=== PATIENT | male | born 1990 | race African-American/Black ===

== ENCOUNTER 2019-01-19 11:24 | Emergency (ER) | payer OTHER ==
[~2019-01-19] VITALS: Ht 193 cm; Wt 124.7 kg
[2019-01-19 11:40] VITALS: BP 157/87
--- NOTE | 2019-01-19 11:55 | PHYS DOC ---
Past Medical History Past Medical History: No Pertinent History Past Surgical History: No Surgical History Alcohol Use: None Drug Use: None Adult General Chief Complaint Chief Complaint: LACERATION/AVULSION HPI HPI Patient is a 28 year old male presents to the ED complaining of left thumb injury �15 minutes ago. 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 Describes the pain as sharp. Rates the pain as 5 out of 10. Denies decreased range of motion, nail bed injury, fever, active bleeding, weakness. Review of Systems Review of Systems Constitutional: Denies fever or chills [] Eyes: Denies change in visual acuity, redness, or eye pain [] HENT: Denies nasal congestion or sore throat [] Respiratory: Denies cough or shortness of breath [] Cardiovascular: No additional information not addressed in HPI [] GI: Denies abdominal pain, nausea, vomiting, bloody stools or diarrhea [] : Denies dysuria or hematuria [] Musculoskeletal: Denies back pain or joint pain [] Integument: Denies rash or skin lesions [] Neurologic: Denies headache, focal weakness or sensory changes [] All other systems were reviewed and found to be within normal limits, except as documented in this note. Allergies Allergies Allergies Coded Allergies Type Severity Reaction Last Updated Verified No Known Drug Allergies 01/19/19 No Physical Exam Physical Exam Constitutional: Well developed, well nourished, no acute distress, non-toxic appearance. [] HENT: Normocephalic, atraumatic Skin: Warm, dry, no erythema, no rash. [] Back: No tenderness, no CVA tenderness. [] Extremities: 1 cm avlusion to left distal thumb. no active bleeding. no bony tenderness, no cyanosis, no clubbing, ROM intact, no edema. [] Neurologic: Alert and oriented X 3, normal motor function, normal sensory function, no focal deficits noted. [] Psychologic: Affect normal, judgement normal, mood normal. [] Current Patient Data Vital Signs Vital Signs Date Time Temp Pulse Resp B/P (MAP) Pulse Ox O2 Delivery O2 Flow Rate FiO2 01/19/19 11:40 97.9 75 16 157/87 (110) 99 Room Air 97.9 EKG EKG [] Radiology/Procedures Radiology/Procedures [] Course & Med Decision Making Course & Med Decision Making Pertinent Labs and Imaging studies reviewed. (See chart for details) []Avulsion injury. No laceration that is repairable. Wound cleaned and dressed. Tetanus up-to-date. Discussed symptomatic treatment and care outpatient. Provided contact information/education for follow-up. Discussed reasons to return to the ED. Patient understands and agrees with plan. Dragon Disclaimer Dragon Disclaimer This electronic medical record was generated, in whole or in part, using a voice recognition dictation system. Departure Departure Impression: Primary Impression: Fingertip avulsion Disposition: HOME, SELF-CARE Condition: IMPROVED Patient Instructions: Fingertip Laceration GREG HSU Jan 19, 2019 11:55
== END 2019-01-19 12:07 | disposition home or self-care (01) ==
LOC: ER 11:24
DX: S61.102A Unspecified open wound of left thumb with damage to nail, initial encounter (principal); Y28.1XXA Contact with knife, undetermined intent, initial encounter; Y93.G3 Activity, cooking and baking; Y92.000 Kitchen of unspecified non-institutional (private) residence as the place of occurrence of the external cause; Y99.0 Civilian activity done for income or pay
CPT/HCPCS: 99283

== ENCOUNTER 2019-09-09 11:03 | Emergency (ER) | payer SELFPAY ==
[~2019-09-09] VITALS: Ht 193 cm; Wt 118.1 kg
[2019-09-09 11:58] VITALS: BP 136/86
--- NOTE | 2019-09-09 13:00 | PHYS DOC ---
Past Medical History Past Medical History: No Pertinent History Past Surgical History: No Surgical History Alcohol Use: None Drug Use: None Adult General Chief Complaint Chief Complaint: FINGER INJURY HPI HPI Patient is a 29 year old patient who presents to the ED today complaining of right index finger swelling and redness that began 4 days ago. Patient denies any injury. Patient is right-handed Review of Systems Review of Systems Constitutional: Denies fever or chills [] Musculoskeletal: Denies back pain or joint pain [] Integument: Reports right index finger swelling and redness Neurologic: Denies headache, focal weakness or sensory changes [] All other systems were reviewed and found to be within normal limits, except as documented in this note. Current Medications Current Medications Current Medications Medications (Trade) Dose Ordered Sig/Pau Start Time Stop Time Status Last Admin Dose Admin Acetaminophen/ Hydrocodone Bitart (Lortab 5/325) 2 tab 1X ONCE 09/09/19 13:30 09/09/19 13:31 Trimethoprim/ Sulfamethoxazole (Bactrim Ds) 1 tab 1X ONCE 09/09/19 13:30 09/09/19 13:31 Allergies Allergies Allergies Coded Allergies Type Severity Reaction Last Updated Verified No Known Drug Allergies 01/19/19 No Physical Exam Physical Exam Constitutional: Well developed, well nourished, no acute distress, non-toxic appearance. [] Skin: Proximal aspect of the right index finger with moderate swelling and cellulitis on the ventral aspect. Patient able to flex and extend the finger at all the joints. Adequate radius sensation to the finger. +2 right radial pulse. Minimal fluctuance noted to the finger. Calus information noted on the PIP joint of the finger. Back: No tenderness, no CVA tenderness. [] Extremities: No tenderness, no cyanosis, no clubbing, ROM intact, no edema. [] Neurologic: Alert and oriented X 3, normal motor function, normal sensory function, no focal deficits noted. [] Psychologic: Affect normal, judgement normal, mood normal. [] Current Patient Data Vital Signs Vital Signs Date Time Temp Pulse Resp B/P (MAP) Pulse Ox O2 Delivery O2 Flow Rate FiO2 09/09/19 11:58 98.4 88 18 136/86 (103) 97 Room Air 98.4 EKG EKG [] Radiology/Procedures Radiology/Procedures [] Course & Med Decision Making Course & Med Decision Making Pertinent Labs and Imaging studies reviewed. (See chart for details) This is a 29-year-old male patient presenting to the ED today with cellulitis of the right index finger. There is some swelling on the finger that was suspicious for an abscess. Patient refused to let me drain it. He states his tetanus is up-to-date. Was given Bactrim prescription on discharge. Dragon Disclaimer Dragon Disclaimer This electronic medical record was generated, in whole or in part, using a voice recognition dictation system. Departure Departure Impression: Primary Impression: Cellulitis of right finger Additional Impression: Abscess of right index finger Disposition: HOME, SELF-CARE Condition: STABLE Referrals: NO PCP (PCP) Please follow-up with your own doctor in a week CASANDRA LEACH II, MD follow up in 1 week Patient Instructions: Cellulitis, [id number] Additional Instructions: You have infection to the index finger. Please soak the finger in warm water with Epsom salts three times a day. Please take the prescribed antibiotics until completed. Please follow-up with your own doctor the provided doctor in 1-2 weeks Scripts Sulfamethoxazole/Trimethoprim (BACTRIM DS TABLET) 1 Each Tablet 1 TAB PO BID for 10 Days, #20 TAB 0 Refills Prov: TILA PAIGE [employer] 09/09/19 Hydrocodone/Apap 5-325 (NORCO 5-325 TABLET) 1 Each Tablet 1 TAB PO Q6HRS, #12 TAB Prov: TILA PAIGE APRN 09/09/19 Problem Qualifiers TILA PAIGE APRN Sep 09, 2019 13:00
[2019-09-09] MEDS ORDERED: HYDR-3164 PO (13:11)
[2019-09-09] MEDS ORDERED: SULF1TAB24 PO (13:11)
[2019-09-09] MEDS ORDERED: SMZ/TMP 800/160MG TABLET. PO ONE (13:30)
[2019-09-09] MEDS ORDERED: HYDROcodone/APAP 5/325MG 1 TAB TABLET PO ONE (13:30)
== END 2019-09-09 13:17 | disposition home or self-care (01) ==
LOC: ER 11:03
DX: L03.011 Cellulitis of right finger (principal)
CPT/HCPCS: 99283